=== PATIENT | female | born 1995 | race Caucasian/White ===

== ENCOUNTER 2017-09-25 20:38 | Emergency (ER) | payer OTHER ==
[~2017-09-25] VITALS: Ht 180.3 cm; Wt 123.4 kg
[~2017-09-25 20:38] MED LIST: ALLERGY EYE DRO15 ML OP; CLARITIN10 M1; KEPPRA1000 MG; KEPPRA500 MG; KETO10TA2 PO
[2017-09-26] MEDS ORDERED: KETOROLAC TROME10 MG PO (00:41)
[2017-09-26] MEDS ORDERED: IRON1TAB4 PO (00:41)
== END 2017-09-26 00:38 | disposition home or self-care (01) ==
LOC: ER 20:38
DX: G44.209 Tension-type headache, unspecified, not intractable (principal); R53.1 Weakness; B34.9 Viral infection, unspecified

== ENCOUNTER 2018-01-29 23:08 | Emergency (ER) | payer OTHER ==
[~2018-01-29] VITALS: Ht 180.3 cm; Wt 117.9 kg
[~2018-01-29 23:08] MED LIST changes: +IRON1TAB4 PO; +KETOROLAC TROME10 MG PO
[2018-01-30] MEDS ORDERED: KETOCONAZOLE15 GM TOP (04:06)
[2018-01-30] MEDS ORDERED: CIPRO500 MG PO (04:06)
[2018-01-30] MEDS ORDERED: MUPIROCIN15 GM TOP (04:06)
== END 2018-01-30 04:37 | disposition home or self-care (01) ==
LOC: ER 23:08
DX: B35.3 Tinea pedis (principal); B35.1 Tinea unguium